=== PATIENT | female | born 1980 | race Caucasian/White ===

== ENCOUNTER 2016-11-28 19:33 | Emergency (ER) | payer OTHER, MEDICAID ==
[~2016-11-28] VITALS: Ht 182.9 cm; Wt 73.6 kg
[2016-11-28] MEDS ORDERED: ADDERALL 20 MG20 MG PO (19:55)
[2016-11-28] MEDS ORDERED: HCTZ 25MG25 MG PO (19:55)
[2016-11-28] MEDS ORDERED: FLUTICASONE P15.8 ML NS (19:56)
[2016-11-28 20:55] VITALS: BP 127/85
== END 2016-11-28 20:55 | disposition home or self-care (01) ==
LOC: ED 19:33
DX: S61.210A Laceration without foreign body of right index finger without damage to nail, initial encounter (principal); W26.0XXA Contact with knife, initial encounter; Y92.000 Kitchen of unspecified non-institutional (private) residence as the place of occurrence of the external cause
CPT/HCPCS: 13373; 5930; A4550

== ENCOUNTER 2017-11-02 15:01 | Emergency (ER) | payer OTHER ==
[~2017-11-02 15:01] MED LIST: ADDERALL 20 MG20 MG PO; FLUTICASONE P15.8 ML NS; HCTZ 25MG25 MG PO
[2017-11-02 15:08] VITALS: BP 157/112
== END 2017-11-02 16:31 | disposition left against medical advice (07) ==
LOC: ED 15:01
DX: F22 Delusional disorders (principal); F19.10 Other psychoactive substance abuse, uncomplicated; R45.1 Restlessness and agitation; Z53.21 Procedure and treatment not carried out due to patient leaving prior to being seen by health care provider; F90.9 Attention-deficit hyperactivity disorder, unspecified type; Z79.899 Other long term (current) drug therapy

== ENCOUNTER 2017-11-04 17:41 | Emergency (ER) | payer OTHER ==
[~2017-11-04] VITALS: Ht 182.9 cm; Wt 71.8 kg
[2017-11-04 19:47] LABS: EOS # 0.1 (0.04-0.40); EOS % 0.9 % (1.0-5.0); HEMOGLOBIN 14.8 g/dL (12.5-16.0); MEAN CELL VOLUME 87 fl (78-100); MEAN CORPUSCULAR HEMOGLOBIN 29 pg (27-31); MEAN CORPUSCULAR HGB CONC 33 g/dL (33-37); MONO # 0.4 (0.20-0.80); NEU # 7.4 (1.40-6.50); PLATELET COUNT 237 K/mm3 (130-400); RED BLOOD COUNT 5.17 M/mm3 (4.10-5.30); RED CELL DISTRIBUTION WIDTH 13.4 % (11.5-14.5); WHITE BLOOD COUNT 9.9 K/mm3 (4.8-10.8)
[2017-11-04 20:01] LABS: CALCIUM 8.6 mg/dL (8.4-10.2); CARBON DIOXIDE 34 mmol/L (22-30); GLUCOSE 176 mg/dL (65-105); POTASSIUM 3.9 mmol/L (3.6-5.0); SODIUM 143 mmol/L (137-145)
[2017-11-04 20:07] LABS: ACETAMINOPHEN < 4 ug/mL (10-30); ALCOHOL IN-HOUSE < 10 mg/dL
[2017-11-04 20:29] LABS: PH-URINE 5.5 (5.0 - 8.0); URINE APPEARANCE HAZY; URINE BILIRUBIN NEGATIVE (NEGATIVE); URINE BLOOD TRACE (NEGATIVE); URINE COLOR YELLOW; URINE GLUCOSE NEGATIVE (NEGATIVE); URINE KETONE NEGATIVE (NEGATIVE); URINE NITRATE NEGATIVE (NEGATIVE); URINE PROTEIN(semi-quant) NEGATIVE (NEGATIVE); URINE UROBILINOGEN NORMAL (NORMAL)
[2017-11-04 20:32] LABS: URINE LEUKOCYTE ESTERASE 2+ (NEGATIVE)
[2017-11-04 20:33] LABS: URINE WBC >50 /hpf (0-3)
[2017-11-04 22:22] VITALS: BP 109/74
[2017-11-04] MEDS ORDERED: MACROBID 100 M100 MG PO (22:55)
== END 2017-11-04 22:22 | disposition home or self-care (01) ==
LOC: ED 17:41
PROVIDERS: Nurse Practitioner Family
DX: F22 Delusional disorders (principal); F41.9 Anxiety disorder, unspecified; N39.0 Urinary tract infection, site not specified; F15.10 Other stimulant abuse, uncomplicated; F43.10 Post-traumatic stress disorder, unspecified; F32.9 Major depressive disorder, single episode, unspecified; F98.8 Other specified behavioral and emotional disorders with onset usually occurring in childhood and adolescence; T43.626A Underdosing of amphetamines, initial encounter; I10 Essential (primary) hypertension; F17.210 Nicotine dependence, cigarettes, uncomplicated